=== PATIENT | female | born 1990 | race African-American/Black ===

== ENCOUNTER 2017-04-09 08:02 | Inpatient (IN) | payer MEDICAID ==
[~2017-04-09] VITALS: Ht 152.4 cm; Wt 75.7 kg
[2017-04-09] MEDS ORDERED: DEXT 5%/LR + PITOCIN 20UNITS/L 1,000 ML IV SCH (09:11)
[2017-04-09] MEDS ORDERED: LACTATED RINGERS 1,000 ML IV SCH (09:11)
[2017-04-09] MEDS ORDERED: NALOXONE HCL 0.4 MG/ML 1ML VIAL IM PRN (09:15)
[2017-04-09] MEDS ORDERED: CARBOPROST TROMETHAMINE 250 MCG/ML AMPUL IM PRN (09:15)
[2017-04-09] MEDS ORDERED: METHYLERGONOVINE MALEATE 0.2 MG/ML IM PRN (09:15)
[2017-04-09] MEDS: LACTATED RINGERS 1,000 ML IV SCH ×2 (10:49→12:05)
[2017-04-09 11:13] LABS: EOSINOPHILS % 0.6 % (0.0-5.0); HEMATOCRIT. 28.6 % (36.0-48.0); HEMOGLOBIN. 9.3 g/dL (12.0-16.0); LYMPHOCYTES % 21.1 % (20.0-50.0); MEAN CORPUSCULAR HEMOGLOBIN 23.9 pg (28.0-32.0); MEAN CORPUSCULAR VOLUME 73.1 fL (81.0-99.0); MEAN PLATELET VOLUME 7.1 fl (7.4-10.4); MONOCYTES % 7.4 % (2.0-8.0); NEUTROPHILS % 69.9 % (40.0-76.0); PLATELET 269 x1000/uL (130-400); RED BLOOD CELL COUNT 3.91 mill/uL (4.2-5.4); RED CELL DISTRIBUTION WIDTH 17.8 % (11.6-14.6)
[2017-04-09 11:25] LABS: CLARITY URINE CLEAR (CLEAR); COLOR URINE YELLOW (YELLOW); GLUCOSE URINE NEGATIVE (NEGATIVE); KETONES URINE NEGATIVE (NEGATIVE); LEUKOCYTE ESTERASE URINE TRACE (NEGATIVE); NITRITE URINE NEGATIVE (NEGATIVE); OCCULT BLOOD URINE 2+ (NEGATIVE); PROTEIN URINE NEGATIVE (NEGATIVE); SPECIFIC GRAVITY URINE 1.018 (1.005-1.030)
[2017-04-09 11:46] LABS: *AMPHETAMINES SCREEN URINE NEGATIVE (NEGATIVE); *BARBITURATES SCREEN URINE NEGATIVE (NEGATIVE); *BENZODIAZEPINES SCREEN URINE NEGATIVE (NEGATIVE); *COCAINE SCREEN URINE NEGATIVE (NEGATIVE); CANNABINOID URINE SCREEN NEGATIVE (NEGATIVE); METHADONE URINE SCREEN NEGATIVE (NEGATIVE); OPIATES URINE SCREEN NEGATIVE (NEGATIVE); PHENCYCLIDINE URINE SCREEN NEGATIVE (NEGATIVE)
[2017-04-09 11:52] LABS: PARTIAL THROMBOPLASTIN TIME 27.9 sec (23.4-31.0)
[2017-04-09] MEDS ORDERED: METHYLERGONOVINE MALEATE 0.2 MG/ML ONE (12:55)
[2017-04-09] MEDS ORDERED: OXYTOCIN 10 UNITS/ML 1ML ONE (13:20)
[2017-04-09] MEDS ORDERED: MORPHINE SULFATE/PF 1MG/ML 10ML AMP ONE (13:20)
[2017-04-09] MEDS ORDERED: DIPHENHYDRAMINE 50MG/ML VIAL ONE (13:20)
[2017-04-09] MEDS ORDERED: EPHEDRINE SULFATE 50MG/ML VIAL ONE (13:20)
[2017-04-09] MEDS ORDERED: FENTANYL CITRATE/PF 50MCG/ML 2ML VIAL ONE (13:20)
[2017-04-09] MEDS ORDERED: ONDANSETRON HCL 4MG/2ML VIAL ONE (13:20)
[2017-04-09] MEDS ORDERED: GLYCOPYRROLATE 0.2 MG/ML 2ML VIAL ONE ×2 (13:20→15:19)
[2017-04-09] MEDS ORDERED: CEFAZOLIN 2000MG PREMIX 50 ML IV ONE (13:21)
[2017-04-09 13:50] LABS: HEPATITIS B SURFACE ANTIGEN NEGATIVE; RUBELLA IGG 131.3 IU/mL (4.99-10)
[2017-04-09] MEDS ORDERED: MIDAZOLAM HCL 2 MG/2 ML VIAL ONE ×2 (14:48→14:54)
[2017-04-09] MEDS ORDERED: ROCURONIUM BROMIDE 10MG/ML VIAL 5ML IV ONE (15:04)
[2017-04-09] MEDS ORDERED: PROPOFOL 200MG/20ML VIAL IV ONE (15:04)
[2017-04-09] MEDS ORDERED: SUCCINYLCHOLINE CHLORIDE 200MG/10ML VIAL IV ONE (15:04)
[2017-04-09] MEDS ORDERED: NEOSTIGMINE METHYLSULFATE 1MG/ML 10 ML VIAL ONE (15:17)
[2017-04-09] MEDS ORDERED: NALOXONE HCL 0.4 MG/ML 1ML VIAL IV PRN (15:45)
[2017-04-09] MEDS ORDERED: IBUPROFEN 400MG TABLET PO PRN (15:45)
[2017-04-09] MEDS ORDERED: FENTANYL CITRATE/PF 50MCG/ML 2ML VIAL IV PRN (15:45)
[2017-04-09] MEDS ORDERED: HYDROMORPHONE HCL/PF 2MG/ML CPJ IM PRN (15:45)
[2017-04-09] MEDS ORDERED: RHO(D) IMMUNE GLOBULIN 300 MCG/SYR IM PRN (15:45)
[2017-04-09] MEDS ORDERED: ACETAMINOPHEN WITH CODEINE 300/30MG TABLET PO PRN (15:45)
[2017-04-09] MEDS ORDERED: DIPHENHYDRAMINE 50MG/ML VIAL IV PRN (15:45)
[2017-04-09] MEDS ORDERED: BUTORPHANOL TARTRATE 2 MG/ML VIAL IV PRN (15:45)
[2017-04-09] MEDS: KETOROLAC 30MG/ML VIAL IV PRN (16:51)
[2017-04-09] MEDS: DEXT 5%/LR + PITOCIN 20UNITS/L 1,000 ML IV SCH (19:38)
[2017-04-09 19:50] VITALS: BP 92/59
[2017-04-09 20:20] VITALS: BP 91/50
[2017-04-09 20:50] VITALS: BP 85/51
[2017-04-09 21:20] VITALS: BP 84/54
[2017-04-09 23:50] VITALS: BP 94/52
[2017-04-10 03:55] VITALS: BP 84/45
[2017-04-10] MEDS: DEXT 5%/LR + PITOCIN 20UNITS/L 1,000 ML IV SCH (05:59)
[2017-04-10] MEDS: KETOROLAC 30MG/ML VIAL IV PRN ×2 (06:12→12:50)
[2017-04-10 06:39] VITALS: BP 84/32
[2017-04-10 07:09] LABS: BASOPHILS % 0.3 % (0.0-2.0); EOSINOPHILS % 0.9 % (0.0-5.0); HEMATOCRIT. 21.8 % (36.0-48.0); LYMPHOCYTES % 11.9 % (20.0-50.0); MEAN CORPUSCULAR HEMOGLOBIN 23.9 pg (28.0-32.0); MEAN CORPUSCULAR VOLUME 73.9 fL (81.0-99.0); MEAN PLATELET VOLUME 6.7 fl (7.4-10.4); MONOCYTES % 9.5 % (2.0-8.0); NEUTROPHILS % 77.4 % (40.0-76.0); PLATELET 188 x1000/uL (130-400); RED BLOOD CELL COUNT 2.95 mill/uL (4.2-5.4); RED CELL DISTRIBUTION WIDTH 17.2 % (11.6-14.6)
[2017-04-10 08:00] VITALS: BP 95/53
[2017-04-10 12:03] VITALS: BP 96/51
[2017-04-10] MEDS ORDERED: METHYLERGONOVINE MALEATE 0.2 MG/ML IM NR (13:30)
[2017-04-10 17:00] VITALS: BP 102/69
[2017-04-10] MEDS ORDERED: HYDROCODONE/ACETAMINOPHEN 5/325MG TABLET PO PRN (18:45)
[2017-04-10 20:45] VITALS: BP 106/68
[2017-04-10 20:46] LABS: BASOPHILS % 0.2 % (0.0-2.0); EOSINOPHILS % 1.1 % (0.0-5.0); HEMATOCRIT. 27.6 % (36.0-48.0); HEMOGLOBIN. 8.7 g/dL (12.0-16.0); LYMPHOCYTES % 11.3 % (20.0-50.0); MEAN CORPUSCULAR HEMOGLOBIN 23.4 pg (28.0-32.0); MEAN CORPUSCULAR VOLUME 74.5 fL (81.0-99.0); MEAN PLATELET VOLUME 7.3 fl (7.4-10.4); MONOCYTES % 8.1 % (2.0-8.0); NEUTROPHILS % 79.3 % (40.0-76.0); PLATELET 263 x1000/uL (130-400); RED CELL DISTRIBUTION WIDTH 17.6 % (11.6-14.6)
[2017-04-10] MEDS: IBUPROFEN 800MG TABLET PO PRN (21:45)
[2017-04-10] MEDS: METHYLERGONOVINE MALEATE 0.2MG TABLET PO SCH (21:45)
[2017-04-11] MEDS: BISACODYL 10MG SUPP PR PRN ×2 (01:35→18:49)
[2017-04-11 04:15] VITALS: BP 95/65
[2017-04-11] MEDS: METHYLERGONOVINE MALEATE 0.2MG TABLET PO SCH ×4 (04:17→19:01)
[2017-04-11 08:00] VITALS: BP 109/63
[2017-04-11] MEDS: IBUPROFEN 800MG TABLET PO PRN ×3 (08:46→23:02)
[2017-04-11 12:00] VITALS: BP 105/59
[2017-04-11 15:20] VITALS: BP 103/61
[2017-04-11] MEDS ORDERED: MAGNESIUM HYDROXIDE 400MG/5ML 30ML UDC PO PRN ×2 (18:00→18:45)
[2017-04-11] MEDS ORDERED: SIMETHICONE 80MG TABLET CHEW PO NR (18:45)
[2017-04-11 20:00] VITALS: BP 108/69
[2017-04-12 05:33] VITALS: BP 110/66
[2017-04-12 07:30] VITALS: BP 106/55
[2017-04-12 08:07] VITALS: BP 110/66
[2017-04-12] MEDS: IBUPROFEN 800MG TABLET PO PRN (08:07)
[2017-04-12] MEDS ORDERED: SIMETHICONE 80MG TABLET CHEW PO SCH (09:00)
== END 2017-04-12 13:30 | disposition home or self-care (01) | DRG 540 ==
LOC: L&D 08:02 → OBSVTOIN 08:02 → 7EST PP/OB 19:45
PROVIDERS: ADMIT Obstetrics & Gynecology; ATTEND Obstetrics & Gynecology
PROC: 0U570ZZ Destruction of Bilateral Fallopian Tubes, Open Approach (ICD-10-PCS; 2017-04-09)
PROC: 10D00Z1 Extraction of Products of Conception, Low, Open Approach (ICD-10-PCS; principal; 2017-04-09 15:35)
DX: O34.211 Maternal care for low transverse scar from previous cesarean delivery (principal); D64.9 Anemia, unspecified; O99.02 Anemia complicating childbirth; Z30.2 Encounter for sterilization; Z3A.38 38 weeks gestation of pregnancy; Z37.0 Single live birth
CPT/HCPCS: 36415; 80305; 81001; 85025; 85610; 85730; 86592; 86703; 86762; 86850; 86900; 87340; 88302; 88307; 99281; J0171; J0330; J0690; J1200; J1885; J2210; J2250; J2274; J2405; J2590; J2704; J2710; J3010; J3490; J7120; A4315